=== PATIENT | male | born 1995 | race Two or more races ===

== ENCOUNTER 2024-12-01 16:18 | Emergency (ER) | payer SELFPAY ==
[~2024-12-01] VITALS: Ht 182.9 cm; Wt 125.0 kg
--- NOTE | 2024-12-01 17:04 | DVH ---
INDICATION: MIDDLE FINGER INJURY TECHNIQUE: 4 radiographic views of the right hand were obtained. COMPARISON: None FINDINGS/IMPRESSION: Acute, oblique, mildly displaced fracture at the distal aspect of the proximal 3rd phalanx with intra -articular involvement. There is no dislocation. Moderate associated soft tissue edema. No significant degenerative changes. No radiographic foreign body.
[2024-12-01] MEDS ORDERED: NAPR-746 PO (17:44)
--- NOTE | 2024-12-01 17:49 | ED.PDOC ---
Musculoskeletal HPI Comments A 29 YEAR OLD MALE PRESENTS TO THE ED WITH COMPLAINT OF RIGHT THIRD DIGIT SWELLING THAT S/P TRAUMA. PATIENT REPORTS 3 WEEKS AGO WAS WORKING AT THE [employer] AND GOT HIS RIGHT 3RD DIGIT STUCK ON AN ENGINE HE WAS WORKING ON. PATIENT REPORTS HIS DIGIT BENT ALL THE WAY BACK, DISLOCATED AND HE WAS ABLE TO POP IT BACK IN THEN. PATIENT STATES SWELLING NEVER WENT AWAY. HE DENIES ANY PAIN, NUMBNESS OR OPEN FRACTURES. PATIENT DENIES FEVER, CHILLS, SHORTNESS OF BREATH, CHEST PAIN, ABDOMINAL PAIN, NAUSEA, VOMITING, HEADACHE, OR OTHER COMPLAINTS. NO OTHER SYMPTOMS OR MODIFYING FACTORS AT THIS TIME. PATIENT IS ALERT, ORIENTED X 4, AND HAS STEADY GAIT. Chief Complaint: Upper Extremity Time Seen by MD: 17:16 Reviewed Notes: Nurses Notes, Medications, Allergies Allergies: Coded Allergies: NO KNOWN ALLERGIES (Unverified , 12/01/24) Home Meds Active Scripts Naproxen (Naproxen) 500 Mg Tab, 500 MG PO BID, #30 TAB Prov:MARY JEFFERSON 12/01/24 Information Source: Patient Mode of Arrival: Ambulatory Location: Right Extremity Location: Finger 3 Timing: Weeks (3) Severity: Moderate Able to Move Extremity: Yes Bear Weight: Fully Pain: Moderate Circumstances: Work Related Onset of Symptoms: After Trauma Symptoms: Swelling DVT Risk Factors: NONE Associated signs and symptoms: None Past Medical History PAST MEDICAL HISTORY: Denies Surgical History: Denies all surgeries Family History Family History: Reviewed,noncontributory to illness, No family hx of Cancer, No family hx of DM, No family hx of Heart desire, No family hx of HTN, No family hx ofKidney desire, No family hx of Liver desire, No family hx of Lung desire, No family hx of Stroke Social History Smoker: Non-Smoker Alcohol: Denies ETOH Use Drugs: Denies Drug Use Lives In: Home Constitutional: denies: chills, diaphoresis, fatigue, fever, malaise, sweats, weakness, others EENTM: denies: blurred vision, double vision, ear bleeding, ear discharge, ear drainage, ear pain, ear ringing, eye pain, eye redness, hearing loss, mouth pain, mouth swelling, nasal discharge, nose bleeding, nose congestion, nose pain, photophobia, tearing, throat pain, throat swelling, voice changes, others Respiratory: denies: cough, hemoptysis, orthopnea, SOB at rest, shortness of breath, SOB with excertion, stridor, wheezing, others Cardiovascular: denies: chest pain, dizzy spells, diaphoresis, Dyspnea on exertion, edema, irregular heart beat, left arm pain, lightheadedness, palpitations, PND, syncope, others Gastrointestinal: denies: abdomen distended, abdominal pain, blood streaked bowels, constipated, diarrhea, dysphagia, difficulty swallowing, hematemesis, melena, nausea, poor appetite, poor fluid intake, rectal bleeding, rectal pain, vomiting, others Genitourinary: denies: burning, dysuria, flank pain, frequency, hematuria, incontinence, penile discharge, penile sore, pain, testicle pain, testicle swelling, urgency, others Neurological: denies: dizziness, fainting, headache, left sided numbness, left sided weakness, numbness, paresthesia, pre-existing deficit, right sided numbness, right sided weakness, seizure, speech problems, tingling, tremors, weakness, others Musculoskeletal: reports: joint pain, joint swelling, others (RIGHT DIGIT PAIN ); denies: back pain, gout, muscle pain, muscle stiffness, neck pain Integumetry: denies: bruises, change in color, change in hair/nails, dryness, laceration, lesions, lumps, rash, wounds, others Allergic/Immunocompromised: denies: Difficulty Healing, Frequent Infections, Hives, Itching, others Hematologic/Lymphatic: denies: anemia, blood clots, easy bleeding, easy bruising, swollen glands, others Endocrine: denies: excessive hunger, excessive sweating, excessive thirst, excessive urination, flushing, intolerance to cold, intolerance to heat, unexplained weight gain, unexplained weight loss, others Psychiatric: denies: anxiety, bipolar disorder, depression, hopeless, panic disorder, schizophrenia, sleepless, suicidal, others All Other Systems: Reviewed and Negative Physical Exam General Appearance: No Apparent Distress, Normal HEENT: Normal ENT Inspection, PERRL/EOMI, Pharynx Normal, TMs Normal Neck: Full Range of Motion, Non-Tender, Normal, Normal Inspection Respiratory: Chest Non-Tender, Lungs Clear, No Accessory Muscle Use, No Respiratory Distress, Normal Breath Sounds Cardiovascular: No Edema, No JVD, No Murmur, No Gallop, Normal Peripheral Pulses, Regular Rate/Rhythm Breast Exam: Deferred Gastrointestinal: No Organomegaly, Non Tender, No Pulsatile Mass, Normal Bowel Sounds, Soft Genitalia: Deferred Pelvic: Deferred Rectal: Deferred Extremities: Decreased range of motion, No calf tenderness, Normal capillary refill, No pedal edema, Swelling (BONY TENDERNESS AND SWELLING ON RIGHT 3RD FINGER, NO DEFORMITY AND OPEN WOUND. ), Tender (BONY TENDERNESS AND SWELLING ON RIGHT 3RD FINGER. ) Musculoskeletal : Apperance: Normal Neurologic: Alert, search lead II-XII nml as Tested, No Motor Deficits, Normal Affect, Normal Mood, No Sensory Deficits Cerebellar Function: Normal Reflexes: Normal Skin: Dry, Normal Color, Warm Peripheral Pulses: 2+ carotid (R), 2+ carotid (L), 2+ Radial (R), 2+ Radial (L) Lymphatic: No Adenopathy Was a procedure done? Was a procedure done?: No Differential Diagnosis EXT Differential Diagnosis: Fracture, Sprain, Dislocation, Contusion, Strain X-Ray, Labs, Meds, VS Vital Signs Date Time Temp Pulse Resp B/P (MAP) Pulse Ox O2 Delivery O2 Flow Rate FiO2 12/01/24 17:50 104 18 96 Room Air 12/01/24 17:50 98.1 104 18 124/82 (96) 96 98.1 12/01/24 16:22 98.1 104 18 124/82 96 98.1 [place] [address] Ph: [phone] DIAGNOSTIC IMAGING Diagnostic Imaging Report : [id number] Signed PATIENT: MERISSA DAVIS ACCT: [id number] UNIT: [id number] : 1995 LOC: ER ROOM / BED: / AGE / SEX: 29 / M ADM STATUS: REG ER SERVICE [id number] ORDERING PHYSICIAN: MARY JEFFERSON PROCEDURE(s): RHAN - R HAND 3 VIEW XRAY REASON: MIDDLE FINGER INJURY ORDER NUMBER(s): [id number], ACCESSION NUMBER(s): [id number] INDICATION: MIDDLE FINGER INJURY TECHNIQUE: 4 radiographic views of the right hand were obtained. COMPARISON: None FINDINGS/IMPRESSION: Acute, oblique, mildly displaced fracture at the distal aspect of the proximal 3rd phalanx with intra-articular involvement. There is no dislocation. Moderate associated soft tissue edema. No significant degenerative changes. No radiographic foreign body. ATED BY: ANITA BARNEY MD DICTATED DATE/TIME: 12/01/241700 SIGNED BY: ANITA BARNEY MD SIGNED DATE/TIME: 12/01/241700 CC: X-Ray, Labs, Meds, VS Comment EXTERNAL MEDICAL RECORDS REVIEWED: [NONE] INDEPENDENT HISTORIANS: [NONE] SOCIAL DETERMINANTS OF HEALTH: [NONE] LABS ORDERED: NONE REVIEWED AND INTERPRETED RESULTS: NONE IMAGING ORDERED: XR RIGHT HAND TREATMENTS ORDERED: FROG SPLINT OF RIGHT 3RD FINGER. PT DECLINE PAIN MEDICATION. PROCEDURES PERFORMED: NONE CRITICAL CARE TIME: NONE I HAVE DISCUSSED THE PATIENT WITH THE ATTENDING PHYSICIAN, HE AGREES WITH THE PATIENT'S PLAN OF CARE AND DISPOSITION. BASED ON HISTORY OF PRESENT ILLNESS, AND PHYSICAL EXAM, PATIENT WILL BE DISCHARGED HOME. DISCUSSED PLAN FOR DISCHARGE HOME WITH RX NAPROXEN 500MG. MEDICATION WARNINGS GIVEN. SHARED DECISION MAKING: DISCUSSED WITH PATIENT THAT THEIR WORKUP WAS NORMAL. PATIENT INSTRUCTED TO FOLLOW UP WITH PRIMARY CARE PROVIDER IN 1-2 DAYS FOR RE- EVALUATION OF SYMPTOMS. PATIENT VERBALIZES UNDERSTANDING TO RETURN TO ED FOR NEW OR WORSENING SYMPTOMS OR IF FOLLOW UP WITH PCP CANNOT BE OBTAINED. PATIENT FEELS COMFORTABLE GOING HOME AT THIS TIME. ALL QUESTIONS ADDRESSED AT TIME OF DISCHARGE. Time of 1ST Reevaluation: 17:56 Reevaluation 1ST: Unchanged Patient Education/Counseling: Diagnosis, Treatment, Need For Follow Up Family Education/Counseling: Diagnosis, Treatment, No Family Present Medical Screening: No EMC Exist At This Time Departure 1 Departure Time of Disposition: 17:57 Impression: Primary Impression: Fracture of phalanx of right middle finger Qualified Codes: S62.642A - Nondisplaced fracture of proximal phalanx of right middle finger, initial encounter for closed fracture Disposition: 01 HOME / SELF CARE / HOMELESS Condition: Stable Additional Instructions: F/U PCP IN 2 DAYS RECHECK. IF CONDITION BECOME WORSE, RETURN TO ED MARCELO. e-Prescriptions Naproxen (Naproxen) 500 Mg Tab 500 MG PO BID, #30 TAB Prov: MARY JEFFERSON 12/01/24 Discharged With: Self Critical Care Note Critical Care Time?: No Stability Stability form required: No I personally scribed for MARY JEFFERSON ([id number]) on 12/01/24 at 17:49. Electronically submitted by Renetta Estrella ([facility]). MARY JEFFERSON Dec 01, 2024 17:49
[2024-12-01 17:50] VITALS: BP 124/82; PULSE 104; RESP 18; TEMP 98.1; O2SAT 96
== END 2024-12-01 17:48 | disposition home or self-care (01) ==
LOC: ER 16:26
DX: S62.642A Nondisplaced fracture of proximal phalanx of right middle finger, initial encounter for closed fracture (principal); X58.XXXA Exposure to other specified factors, initial encounter; Y93.89 Activity, other specified; Y92.89 Other specified places as the place of occurrence of the external cause; Y99.8 Other external cause status
CPT/HCPCS: 29130; 73130